=== PATIENT | female | born 1965 | race African-American/Black ===

== ENCOUNTER 2016-05-08 22:35 | Emergency (ER) | payer BC ==
[~2016-05-08 22:35] MED LIST: ACET500CAP PO; ALEVE220 MG PO; EXCEDRIN MIGRA1 EAC1 PO; EXCEDRINTB PO; GOODY'S EX PO; KLONO1 PO; NASONEX NAS; PR25 PO; PREV15 PO; PREVALITE4 G1 PO; PRISTIQ50 MG PO; VALIUM10 MG PO; VIVELLE SY0.05 MG/24 TOP; ZYRTEC ALLGY10 MG PO; [UNRECOGNIZED DRUG - OTHER] OR
[2016-05-08 23:15] LABS: ASCORBIC ACID (UR NOT ORDER) NEG (NEG); BASOPHILS 0.2 %; BASOPHILS ABSOLUTE 0.03 10/3/uL (0.0-0.16); BILIRUBIN, URINE NEGATIVE (NEG); EOSINOPHILS ABSOLUTE 0.13 10/3/uL (0.0-0.53); ER URINALYSIS TAT 0 Hrs 08 Mins; HEMATOCRIT 40.1 % (36.0-48.0); HEMOGLOBIN 12.8 g/dL (12.0-16.0); IMMATURE GRANULOCYTES 0.7 %; IMMATURE GRANULOCYTES ABSOLUTE 0.09 10/3/uL (0.0-0.11); KETONE, URINE NEGATIVE (NEG); LEUKOCYTE ESTERASE(NOT OR NEG (NEG); LYMPHOCYTES ABSOLUTE 2.98 10/3/uL (0.67-4.30); MEAN CORPUS HGB CONC 31.9 g/dL (32.0-36.0); MEAN CORPUSCULAR HEMOGLOB 26.9 pg (26.0-34.0); MEAN CORPUSCULAR VOLUME 84.4 fL (80-100); MEAN PLATELET VOLUME 10.3 fL (9.2-13.0); MONOCYTES 5.2 %; MONOCYTES ABSOLUTE 0.67 10/3/uL (0.21-1.20); NEUTROPHILS 69.9 %; NEUTROPHILS ABSOLUTE 9.08 10/3/uL (2.02-8.40); NITRITE (URINE) NEG (NEG); PLATELET COUNT 330 10/3/uL (150-400); RBC DISTRIBUTION WIDTH 15.5 % (12.0-16.0); RED CELL COUNT 4.75 10/6/uL (4.0-5.6); WBC (NOT ORDERED) (RFLEX) 2 (0-5)
[2016-05-08 23:16] LABS: ER CBC TAT 0 Hrs 08 Mins; MANUAL DIFF NO %
[2016-05-08 23:27] LABS: A/G RATIO 0.6 (0.7-1.9); ALBUMIN 2.6 G/DL (3.5-5.0); C-REACTIVE PROTEIN 14.5 MG/L (<8.0); CALCIUM, SERUM 8.1 MG/DL (8.5-10.4); CHLORIDE, SERUM 107 MMOL/L (96-112); CO2 (CARBON DIOXIDE) 29 MMOL/L (24-34); CREATININE 0.93 MG/DL (0.55-1.02); GFR AFRICAN AMERICAN 83 ML/MIN (>=60); GFR NON AFRICAN AMERICAN 72 ML/MIN (>=60); GLOBULIN 4.1 G/DL (2.5-4.1); POTASSIUM, SERUM 3.6 MMOL/L (3.5-5.3); SGOT(AST) 9 U/L (5-40); SGPT(ALT) 19 U/L (5-65); SODIUM, SERUM 144 MMOL/L (135-148); TOTAL BILIRUBIN 0.2 MG/DL (0-1.2); TOTAL PROTEIN 6.7 G/DL (6.0-8.5)
[2016-05-08 23:28] LABS: ALKALINE PHOSPHATASE 124 U/L (45-117); BUN (BLOOD UREA NITROGEN) 19 MG/DL (6-23); GLUCOSE, SERUM 129 MG/DL (60-99)
[2016-05-09 00:28] LABS: SED RATE 17 MM/HR (0-20)
== END 2016-05-09 00:24 | disposition home or self-care (01) ==
LOC: ER 22:35
PROVIDERS: Nurse Practitioner Acute Care
DX: L50.9 Urticaria, unspecified (principal); F41.9 Anxiety disorder, unspecified; Z88.5 Allergy status to narcotic agent; Z88.8 Allergy status to other drugs, medicaments and biological substances; Z79.82 Long term (current) use of aspirin; Z79.899 Other long term (current) drug therapy
CPT/HCPCS: 80053; 81001; 85025; 85652; 86140; 93005; 96374; 96375; 99284